=== PATIENT | female | born 1955 | race Caucasian/White ===

== ENCOUNTER → 2016-08-16 | Outpatient (CLI) | payer OTHER ==
--- NOTE | 2016-08-18 15:05 | MA ---
Screening Digital Mammogram With iCAD Analysis Clinical Indications: Routine screening. Both grandmothers were diagnosed with breast cancer. Technique: Standard cephalocaudal projections are obtained. Digital breast tomosynthesis was performe d in the MLO projection with reconstruction at 1.0 mm slice thickness and composite MLO views reconst ructed. This examination is processed by the iCAD computer aided detection system. Comparison: January 2014, April 2012, December 2010, July 2009, October 2007. Breast density: Type B; Scattered fibroglandular densities. Findings: CAD was reviewed. There is a new 8 mm nodular opacity with possible associated architectura l distortion seen in the upper outer left breast. No suspicious microcalcifications are seen. The rig ht breast is stable in appearance. Impression: Left breast nodular opacity requires further evaluation, BI-RADS 0. Recommendation: Targeted left breast ultrasound with additional mammographic evaluation if considered indicated by the interpreting radiologist. [facility] will send a result letter to the patient. Negative mammography should not preclude additional workup of a clinically suspicious finding. The patient's information is entered into a reminder system with a target due date for her next mammo gram.
== END ==
LOC: FIMAGING 14:05
DX: Z12.31 Encounter for screening mammogram for malignant neoplasm of breast (principal)
CPT/HCPCS: G0202

== ENCOUNTER → 2016-09-01 | Outpatient (CLI) | payer OTHER ==
--- NOTE | 2016-09-01 11:48 | US ---
Left Breast Sonogram, complete History: Nodule seen on screening mammography Comparison: August 16, 2016 Findings: At the 2 o'clock radial, 7 cm from the nipple is a small hypoechoic avascular nodule (talle r than it is wide) measuring approximately 5 mm in maximum diameter. This corresponds to size and sha pe to the mammographic nodule. This is best seen [employer]. This is nonpalpable. No abnorma l axillary lymph nodes are identified. Impression: Suspicious nodule 2 o'clock radial. Recommendation: Ultrasound directed vacuum assisted core biopsy for histologic analysis. BI-RADS 4. Suspicious. Results and recommendation discussed with the patient in detail. A message was left for Dr. Goodman.
== END ==
LOC: FIMAGING 10:43
PROVIDERS: ATTEND Obstetrics & Gynecology
DX: R92.2 Inconclusive mammogram (principal)

== ENCOUNTER → 2016-09-26 | Outpatient (CLI) | payer OTHER ==
[~2016-09-26] MED LIST: THROMBIN (RECOMBINANT) 5,000 UNIT VIAL TP ONE
== END ==
LOC: FIMAGING 07:57
PROVIDERS: ATTEND Obstetrics & Gynecology
PROC: 0HBU3ZX Excision of Left Breast, Percutaneous Approach, Diagnostic (ICD-10-PCS; principal; 2016-09-26)
DX: C50.412 Malignant neoplasm of upper-outer quadrant of left female breast (principal)
CPT/HCPCS: G0206

== ENCOUNTER → 2016-10-19 | Day surgery (SDC) | payer OTHER | END | disposition home or self-care (01) | LOC: FIMAGING 07:27 | PROVIDERS: ATTEND Surgery | DX: C50.912 Malignant neoplasm of unspecified site of left female breast (principal) | CPT/HCPCS: 76098; 78195; A9520 ==

== ENCOUNTER → 2016-11-18 | Outpatient (CLI) | payer OTHER | LOC: FIMAGING 08:55 | PROVIDERS: ATTEND Internal Medicine Hematology & Oncology | DX: Z13.820 Encounter for screening for osteoporosis (principal); Z78.0 Asymptomatic menopausal state ==

== ENCOUNTER → 2017-08-17 | Outpatient (CLI) | payer OTHER | LOC: FIMAGING 10:04 | PROVIDERS: ATTEND Obstetrics & Gynecology | DX: Z12.31 Encounter for screening mammogram for malignant neoplasm of breast (principal); Z85.3 Personal history of malignant neoplasm of breast ==

== ENCOUNTER → 2018-08-20 | Outpatient (CLI) | payer OTHER | LOC: FIMAGING 09:45 | PROVIDERS: ATTEND Obstetrics & Gynecology | DX: Z12.31 Encounter for screening mammogram for malignant neoplasm of breast (principal); Z85.3 Personal history of malignant neoplasm of breast; Z80.3 Family history of malignant neoplasm of breast ==